=== PATIENT | male | born 1995 | race Caucasian/White ===

== ENCOUNTER 2023-06-18 12:33 | Emergency (ER) | payer SELFPAY ==
[2023-06-18 12:33] VITALS: BP 149/93; PULSE 78; RESP 16; TEMP 35.8; O2SAT 100; BMI 25.4
--- NOTE | 2023-06-18 12:45 | ED.VIS.GI ---
HPI HPI - GI History of Present Illness Chief Complaint: Abd Pain Informant: patient Abdominal Pain/Flank Pain Onset: Today Context: Gradual Onset Timing: Continuous Quality: Cramping Location: Diffuse Worsened by: - (Drinking liquids) Relieved by: Nothing Nausea/Vomiting/Emesis GI Symptom: Negative for Nausea or Vomiting Diarrhea/Melena/Hematochezia GI Symptom: Positive for Hematochezia; Negative for Diarrhea or Melena Onset: Today Stool Quality: Positive for BRB per rectum Episodes: 1 Associated Symptoms Associated Symptoms: Negative for Dysuria, Frequency or Hematuria Narrative Narrative: Patient presents with abdominal pain and rectal bleeding that began today. Patient states he had 1 episode of red rectal bleeding today. Patient states there was blood in the toilet and on the toilet paper when he wiped. Patient admits to some abdominal cramping that began this morning as well. Patient states this gets worse whenever he drinks liquids. Patient is unable to localize his cramping. Patient states nothing makes it better. Patient denies any nausea or vomiting. Patient denies any urinary complaints. PFSH PFSH Medical History no medical history no medical history Allergy/AdvReac Type Severity Reaction Status Date / Time erythromycin base Allergy Intermediate NEEDS Verified 06/18/23 12:35 FOLLOW-UP Penicillins Allergy Intermediate NEEDS Verified 06/18/23 12:35 FOLLOW-UP Sulfa (Sulfonamide Allergy Intermediate NEEDS Verified 06/18/23 12:35 Antibiotics) FOLLOW-UP Surgical History History of tonsillectomy and adenoidectomy Hx of tympanostomy tubes Status post ORIF of fracture of ankle Social History (Updated 06/18/23 @ 12:[address] August Mg, DO) Smoking Status: Current every day smoker tobacco type: cigarettes Smoking packs per day: 1 Smoking cigarettes per day: 20.0 ROS ROS ED Constitutional Constitutional ED: Denies chills or fever(s) Eyes Eyes: Denies blurry vision or change in vision ENT ENT ED: Reports ear pain and sore throat; Denies rhinorrhea Cardiovascular Cardiovascular: Denies chest pain or palpitations Respiratory/Chest Respiratory/Chest: Denies cough or dyspnea Gastrointestinal Gastrointestinal: Reports abdominal pain and melena; Denies nausea or vomiting Genitourinary Genitourinary ED: Denies dysuria or hematuria Musculoskeletal Musculoskeletal: Denies back pain or neck pain Integumentary Denies abscess or rash Neurologic Neurologic: Denies headache(s) or weakness Allergic/Immunologic Allergic/Immunologic ED: Denies mouth swelling or urticaria EXAM Physical Exam Const Vital Signs: 06/18/23 12:33 06/18/23 14:29 06/18/23 14:31 Temperature 96.4 F L Temperature Source Temporal Pulse Rate 78 81 Pulse Rate [Lying] 86 Pulse Rate [Sitting (for 1 minute prior to obtaining)] 81 Pulse Rate [Standing (for 1 minute prior to obtaining)] 116 H Respiratory Rate 16 16 Blood Pressure 149/93 H 139/78 H Blood Pressure [Lying] 126/78 H Blood Pressure [Sitting (for 1 minute prior to obtaining)] 127/75 H Blood Pressure [Standing (for 1 minute prior to obtaining)] 139/78 H Blood Pressure Mean 111 98 Blood Pressure Mean [Lying] 94 Blood Pressure Mean [Sitting (for 1 minute prior to obtaining)] 92 Blood Pressure Mean [Standing (for 1 minute prior to obtaining)] 98 Pulse Ox 100 99 Oxygen Delivery Method Room Air Positive well nourished and well developed General Appearance ED: well developed and NAD HEENT Reports moist mucous membranes Neck supple and no JVD Resp normal respiratory effort and clear to auscultation bilaterally Cardio regular rate and regular rhythm GI non-distended Palpation: tender LLQ (Mild); Negative for guarding or rebound tenderness present Rectal Exam: visual inspection normal, normal sphincter tone and prostate normal; Negative for abnormal stool Neuro CN's II-XII intact bilaterally, moves all extremities and no sensory deficits noted Sensorium / Orientation: alert Motor Exam: strength 5/5 throughout Psych mental status grossly normal and thought process normal MDM MDM MDM Narrative Medical decision making narrative: Differential diagnosis includes lower gastrointestinal bleeding, diverticulitis, internal hemorrhoid, external hemorrhoid, and colitis. CBC will be obtained to assess for leukocytosis and anemia. Basic metabolic profile will be obtained to assess for electrolyte abnormality and renal function. Stool for occult blood will be obtained to assess for occult bleeding. CT scan of the abdomen pelvis will be obtained to assess for mass and diverticulitis. Lab Data Attestation: I reviewed the patient's lab results. Lab results narrative: CBC was reviewed. There is a slight leukocytosis of 12.0. Hemoglobin was 16.4 and hematocrit was 49.0. Basic metabolic profile was reviewed and was within normal limits. Stool was positive for occult blood. Labs: Laboratory Results - last 24 hr 06/18/23 13:09 WBC 12.0 H RBC 5.53 Hgb 16.4 Hct 49.0 MCV 88.6 MCH 29.7 MCHC 33.5 RDW Std Deviation 38.5 RDW Coeff of Raegan 11.9 Plt Count 164 MPV 10.2 Immature Gran % (Auto) 0.400 Neut % (Auto) 79.0 H Lymph % (Auto) 11.9 L Bullitt % (Auto) 7.4 Eos % (Auto) 0.9 Baso % (Auto) 0.4 Absolute Neuts (auto) 9.4 H Absolute Lymphs (auto) 1.42 Nucleated RBC % 0 Sodium 141 Potassium 4.2 Chloride 112 H Carbon Dioxide 26.0 Anion Gap 3 L BUN 9 Creatinine 0.84 Estim Creat Clear Calc 139.44 Est GFR (MDRD) Af Amer 140 Est GFR (MDRD) Non-Af 116 BUN/Creatinine Ratio 10.8 Glucose 101 Calcium 9.3 Radiography Diagnostic Testing: Clinical Impression(s) from Imaging Studies Abdomen/Pelvis CT 06/18/23 13:00 IMPRESSION: No acute abnormality identified. Negative examination for renal stone. Electronically Signed: Renate Hurley MD at 13:36 EST Reading Location ID and State: [facility] / [place] Tel , Service support , CT scan of the abdomen pelvis was obtained. There is no free air or free fluid. There is no mass noted. There is no acute abnormality noted. This was interpreted by the radiologist and was also independently reviewed by myself. Treatment and Re-Evaluation :: Orthostatic vital signs were obtained and were negative. Patient was advised of his findings. Patient was advised that he will need to follow-up as an outpatient. Patient was instructed to limit straining. Patient was instructed to use stool softeners as needed. Patient was instructed to follow-up with his primary care physician in 5 to 7 days. 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 Patient understood and was agreeable with the plan. All questions were answered. Discharge Plan Triage Chief Complaint: Abd Pain Other Complaint: GI Bleed ED Provider: August Mg Dx/Rx/DC Orders Clinical Impression: Rectal bleeding Instructions: ED Lower GI Bleeding (Stable) Primary Care Provider: Care Physician,No Primary Referrals: Dave Campos MD [Med Staff - Active Staff] - 5-7 Days Refugio Hutchison DO [Med Staff - Active Staff] - 5-7 Days NOT,DEFINED [Non-Staff] - Disposition Disposition: Home, Self Care Discharge Date/Time: 06/18/23 14:32
--- NOTE | 2023-06-18 13:00 | CT_ITS ---
HISTORY: Pain. TECHNIQUE: Helically acquired images were obtained of the abdomen and pelvis without oral or IV contrast. A radiation dose optimization technique was used for this scan. 447 images. COMPARISON: None. FINDINGS: LOWER CHEST: Lung bases clear. BOWEL: Bowel including appendix nondilated. Underdistended distal colon without focal pericolonic inflammatory change. PERITONEUM: No significant free fluid. LIVER: Unremarkable. GALLBLADDER/BILIARY TREE: Gallbladder present. SPLEEN/PANCREAS/ADRENAL GLANDS: Nonenlarged. KIDNEYS AND URETERS: No nephrolithiasis or obstructing ureteral calculus. VESSELS: No abdominal aortic aneurysm. PELVIC ORGANS: Unremarkable. BONES: Intact. CT/Abdomen/Pelvis without Cont IMPRESSION: No acute abnormality identified. Negative examination for renal stone. Electronically Signed: Renate Hurley MD at 13:36 EST ,
[2023-06-18 13:17] LABS: Absolute Lymphocyte Count 1.42 X10^3/uL (0.83-4.51); Absolute Neutrophil Count 9.4 X10^3/uL (2.0-7.7); Basophil# 0.05 X10^3/uL; Basophil% 0.4 % (0-1); Eosinophil# 0.11 X10^3/uL; Eosinophils% 0.9 % (0-5); Hemoglobin 16.4 g/dL (13.0-16.5); Lymphocyte # 1.42 X10^3/ul (0.83-4.51); Lymphocyte % 11.9 % (19-41); Mean Corp Hgb Conc 33.5 g/dL (32-36); Mean Corpuscular Hgb 29.7 pg (27.0-32.0); Mean Corpuscular Volume 88.6 fL (80-94); Mean Platelet Vol. 10.2 fl (6.2-12.0); Monocyte# 0.89 X10^3/uL; Monocyte% 7.4 % (0-10); NRBC Flagged by Analyzer 0 % (0-5); Neutrophil # 9.43 X10^3/uL (2.7-7.7); Platelet Count 164 K/mm3 (150-450); RBC Distribution Width CV 11.9 % (11.6-14.6); RBC Distribution Width SD 38.5 fl (35.1-43.9); Red Blood Count 5.53 M/mm3 (4.6-6.2)
[2023-06-18 13:32] LABS: Anion Gap 3 (5-15); BUN 9 mg/dL (7-18); BUN/Creat Ratio 10.8 RATIO (10-20); Calcium,Total 9.3 mg/dL (8.5-10.1); Chloride 112 mmol/L (98-107); Creatinine, Serum 0.84 mg/dL (0.70-1.30); EST Glomerular Filtration Rate 116 mL/min (>60); Est Glom Filt Rate - Afr Amer 140 mL/min (>60); Estimated Creatinine Clearance 139.44 ml/min; Glucose 101 mg/dL (74-106); Potassium 4.2 mmol/L (3.5-5.1); Sodium Level 141 mmol/L (136-145)
[2023-06-18 14:29] VITALS: BP 126/78; BP 127/75; BP 139/78; PULSE 116; PULSE 81; PULSE 86
[2023-06-18 14:31] VITALS: BP 139/78; PULSE 81; RESP 16; O2SAT 99
== END 2023-06-18 14:32 | disposition home or self-care (01) ==
PROVIDERS: Emergency Provider Emergency Medicine; Visit Provider Emergency Medicine
DX: K62.5 Hemorrhage of anus and rectum (principal); R10.9 Unspecified abdominal pain; F17.210 Nicotine dependence, cigarettes, uncomplicated
CPT/HCPCS: 74176; 80048; 82274; 85025; 99284; A4216